=== PATIENT | female | born 1970 | race Caucasian/White ===

== ENCOUNTER 2016-08-09 19:43 | Emergency (ER) | payer BC ==
[~2016-08-09] VITALS: Ht 175.3 cm; Wt 72.7 kg
[2016-08-09 20:12] VITALS: BP 132/83
[2016-08-09 21:02] LABS: HEMATOCRIT 39.6 % (36.0-46.0); MCH 31.4 PG (29.0-34.0); MCHC 35.1 G/DL (30.0-36.0); MCV 89.6 FL (83-99); PLATELET COUNT 239 K/uL (156-360); RBC DIS.WIDTH-CV 12.4 % (11.8-14.6); RBC DIS.WIDTH-SD 39.6 % (39-53); RED BLOOD COUNT 4.42 M/uL (3.80-5.20); WHITE BLOOD COUNT 14.4 K/uL (4.1-10.2)
[2016-08-09 21:13] LABS: CHLORIDE 108 mEq/L (99-109); POTASSIUM 3.7 mEq/L (3.7-5.4); SODIUM 139 mEq/L (136-147)
[2016-08-09 21:15] LABS: GLUCOSE 120 mg/dL (70-99)
[2016-08-09 21:16] LABS: ANION GAP 7 MEQ/L (2-14)
[2016-08-09 21:17] LABS: TOTAL BILIRUBIN 0.8 mg/dL (0.0-1.0)
[2016-08-09 21:18] LABS: ALKALINE PHOSPHATASE 31 IU/L (3-129)
[2016-08-09 21:19] LABS: GFR ESTIMATE (CALCULATED) > 59 mL/min/
[2016-08-09 21:20] LABS: UREA NITROGEN (BUN) 12 mg/dL (9-23)
== END 2016-08-10 00:17 | disposition left against medical advice (07) ==
LOC: EME 19:43
DX: H53.8 Other visual disturbances (principal); R20.0 Anesthesia of skin; Z98.890 Other specified postprocedural states; Z53.21 Procedure and treatment not carried out due to patient leaving prior to being seen by health care provider
CPT/HCPCS: 80053; 85027